=== PATIENT | male | born 2000 | race Two or more races ===

== ENCOUNTER 2018-11-06 09:51 | Emergency (ER) | payer OTHER ==
[2018-11-06] VITALS (7 sets, daily range): BP systolic 128–148; BP diastolic 78–88
[~2018-11-06] VITALS: Ht 172.7 cm; Wt 77.1 kg
--- NOTE | 2018-11-06 09:51 | NUR ---
ED Nurse Note: PT BROUGHT IN BY [facility] ACCOMPANIED BY [employer] FOR MEDICAL CLEARANCE. PT IN CUSTODY. PER EMS, PT BECAME EXTREMELY AGITATED AND COMBATIVE BEFORE TRANSPORT TO [facility]. VERSED 5MG ADMINISTERED BY EMS PRIOR TO ARRIVAL. UPON ARRIVAL, PT CALM AND SLEEPING. VSS. [employer] REMAINS AT BEDSIDE.
[2018-11-06] MEDS ORDERED: Bacitracin Oint UD TOPIC ONE (10:00)
[2018-11-06] MEDS ORDERED: Tetanus/Diptheria/Pertussis IM ONE (10:00)
--- NOTE | 2018-11-06 10:15 | NUR ---
ED Nurse Note: PT TO CT VIA GURNEY ACCOMPANIED BY [employer].
--- NOTE | 2018-11-06 10:22 | Emergency Room Report ---
History of Present Illness General Chief Complaint: Medical Clearance Source: Patient, EMS Present Illness HPI 18-year-old male presents ED for evaluation. Brought in by EMS and [employer] for medical clearance. Is in police custody. Patient was brought in because he started banging his head and became very agitated appearance given Versed by EMS. Patient admitted to methamphetamine and marijuana use. Has history of methamphetamine use according to [employer]. Patient has bruising above his left eye. Tetanus unknown. Patient is now sedated unable to provide any additional history at this time. No signs of distress. Breathing on his own. No other aggravating relieving factors. Denies any other associated symptoms Allergies: Coded Allergies: No Known Allergies (Unverified , 11/06/18) Patient History Past Medical History: none Past Surgical History: none Pertinent Family History: none Social History: Reports: drug use; Denies: smoking, alcohol use Immunizations: UTD Reviewed Nursing Documentation: PMH: Agreed; PSxH: Agreed Nursing Documentation-PMH Past Medical History: No History, Except For Review of Systems All Other Systems: negative except mentioned in HPI Physical Exam Vital Signs Date Time Temp Pulse Resp B/P (MAP) Pulse Ox O2 Delivery O2 Flow Rate FiO2 11/06/18 09:45 97.7 93 18 139/84 98 Room Air Sp02 EP Interpretation: reviewed, normal General Appearance: no apparent distress, GCS 15, non-toxic, lethargic Head: normocephalic, other - abrasion above L eye Eyes: bilateral eye other - pinpoint pupils bilaterally ENT: normal ENT inspection Neck: normal inspection Respiratory: chest non-tender, lungs clear, normal breath sounds, speaking full sentences Cardiovascular #1: regular rate, rhythm, no edema Gastrointestinal: normal bowel sounds, non tender, soft, non-distended, no guarding, no rebound Rectal: deferred Genitourinary: no CVA tenderness Musculoskeletal: normal inspection Neurologic: other - lethargic Psychiatric: other - lethargic Skin: normal inspection Lymphatic: normal inspection Medical Decision Making Diagnostic Impression: Primary Impression: Medical clearance for incarceration ER Course Hospital Course 18-year-old male presents to ED for [facility] clearance. hitting his head. h/o methamphetamine use. Given Versed Clinical course Patient placed on stretcher. Handcuffs. After initial history and physical I ordered CT head, tetanus and bacitracin. Patient woke up and declined CT head. Became very agitated and combative again. Patient can be medically cleared but will sign AGAINST MEDICAL ADVICE as he refused the CT Patient given additional dose of Versed for agitation Diagnosis - medical clearance for incarceration stable and discharged into police custody Last Vital Signs Date Time Temp Pulse Resp B/P (MAP) Pulse Ox O2 Delivery O2 Flow Rate FiO2 11/06/18 09:53 97.9 94 16 132/86 97 Room Air Status: improved Disposition: AGAINST MEDICAL ADVICE Condition: Stable Scripts Unable to Obtain Active Prescriptions or Reported Meds Johnny Yan MD Nov 06, 2018 10:22
--- NOTE | 2018-11-06 10:28 | NUR ---
ED Nurse Note: PT BACK FROM CT VIA GURNEY ACCOMPANIED BY [employer]. PER TECH, UNABLE TO COMPLETE CT DUE TO PT NONCOMPLIANCE.
--- NOTE | 2018-11-06 10:30 | NUR ---
ED Nurse Note: DR PARKER AND PRIMARY RN AT BEDSIDE EXPLAINING RISKS AND CONSEQUENCES IN REFUSING TREATMENT INCLUDING BUT NOT LIMITED TO WORSENING OF SYMPTOMS, PERMANENT DISABILITY, AND EVEN . PT VERBALIZES UNDERSTANDING BUT CONTINUES TO REFUSE TREATMENT. AMA FORM PRESENTED TO PT BUT PT REFUSES TO SIGN.
[2018-11-06] MEDS ORDERED: LORazepam Inj 2mg/ml 1ml ONE (10:31)
--- NOTE | 2018-11-06 10:35 | NUR ---
ED Nurse Note: PT EXTREMELY AGITATED AND COMBATIVE WITH [employer] AND ER STAFF. HANDCUFFS IN PLACE FROM [employer] - SWELLING AND REDNESS NOTED TO BILATERAL WRISTS FROM PT AGITATION WHILE IN HANDCUFFS. BEHAVIORAL RESTRAINTS PLACED ON BILATERAL ANKLES AND WRISTS PER DR. PARKER ORDER. PT REMAINS COMATIVE AND YELLING "FUCK ALL OF YOU BITCHES!" [employer] REMAINS AT BEDSIDE.
[2018-11-06] MEDS ORDERED: LORazepam Inj 2mg/ml 1ml IM ONE ×2 (10:45)
--- NOTE | 2018-11-06 11:29 | NUR ---
ED Nurse Note: PT REMAINS COMBATIVE AND RESISTIVE TO CARE. PT MEDICALLY CLEARED BY DR. PARKER. VERBAL ORDER FOR VERSED 5MG IM RECEIVED FROM DR PARKER. MED, DOSAGE, AND ROUTE CONFIRMED WITH MD AND ADMINISTERED PER ORDER. [employer] REMAINS AT BEDSIDE.
--- NOTE | 2018-11-06 11:42 | NUR ---
ED Nurse Note: PT REMAINS COMBATIVE AND RESISTIVE TO CARE. AOX4. PT HAS ALREADY BEEN MEDICALLY CLEARED BY DR. PARKER. PER JANINE, OFFICERS READY TO TAKE PT TO [facility]. RESTRAINTS REMOVED FROM ALL EXTREMITIES. DISCHARGE PAPERWORK EXPLAINED TO PT. DISCHARGE PAPERWORK GIVEN TO JANINE ALONG WITH LETTER OF MEDICAL CLEARANCE. PT TAKEN OUT OF ER WITH ALL BELONGINGS ACCOMPANIED BY JANINE.
== END 2018-11-06 11:42 | disposition left against medical advice (07) ==
LOC: EDBD 09:51 → EMR 10:20
DX: S00.83XA Contusion of other part of head, initial encounter (principal); R45.1 Restlessness and agitation; W22.8XXA Striking against or struck by other objects, initial encounter; Y92.9 Unspecified place or not applicable; F15.90 Other stimulant use, unspecified, uncomplicated; F12.90 Cannabis use, unspecified, uncomplicated; Z23 Encounter for immunization
CPT/HCPCS: 90471; 90715; 96372; 99283; J2250